=== PATIENT | female | born 1965 | race African-American/Black ===

== ENCOUNTER → 2018-04-24 | Outpatient (CLI) | payer MEDICARE, OTHER ==
--- NOTE | 2018-04-24 11:05 | MR ---
EXAMINATION TYPE: MR brain wo con DATE OF EXAM: 04/24/2018 10:24 AM COMPARISON: NONE HISTORY: Tremors FINDINGS: The ventricles, basal cisterns and sulci overlying the cerebral convexities are mildly enlarged. There is evidence of mild periventricular white matter ischemic demyelination. Multiple sub-4 mm foci of increased signal are noted on the inversion recovery data set totaling nancie roximately 15 within the right cerebral hemisphere and 6 within the left cerebral hemisphere. Finding s are nonspecific and may reflect chronic small vessel ischemic change, sequela of Lyme's disease, ch ronic migraine headaches, vasculitis as well as demyelinating disease. No acute edema is seen on diffusion weighted imaging. There is no evidence for midline shift or mass effect. Acute intracranial hemorrhage or extra-axial collection is not evident. The paranasal sinuses and mastoid air cells are well-aerated. IMPRESSION: Age-related atrophic and chronic small vessel ischemic change. Nonspecific white matter changes as n oted above. No acute intracranial process at this time.
--- NOTE | 2018-04-24 11:21 | US ---
EXAMINATION TYPE: US carotid duplex BILAT DATE OF EXAM: 04/24/2018 COMPARISON: NONE CLINICAL HISTORY: R47.89. tremors EXAM MEASUREMENTS: RIGHT: Peak Systolic Velocity (PSV) cm/sec ----- Right CCA: 80.3 ----- Right ICA: 107.0 ----- Right ECA: 85.4 ICA/CCA ratio: 1.3 RIGHT: End Diastole cm/sec ----- Right CCA: 28.5 ----- Right ICA: 50.0 ----- Right ECA: 22.2 LEFT: Peak Systolic Velocity (PSV) cm/sec ----- Left CCA: 69.0 ----- Left ICA: 83.3 ----- Left ECA: 85.4 ICA/CCA ratio: 1.2 LEFT: End Diastole cm/sec ----- Left CCA: 22.2 ----- Left ICA: 39.2 ----- Left ECA: 19.7 VERTEBRALS (direction of flow): Right Vertebral: Antegrade Left Vertebral: Antegrade Rhythm: Normal No elevated velocities IMPRESSION: 1. No significant flow-limiting stenosis bilateral carotid bifurcations. Criteria for Assigning % of Stenosis / Diameter reduction (Estimation based on the indirect measurements of the internal carotid artery velocities (ICA PSV). 1. Normal (no stenosis)=ICA PSV < 125 cm/s: ratio < 2.0: ICA EDV<40 cm/s. 2. Less than 50% stenosis=ICA PSV < 125 cm/s: ratio < 2.0: ICA EDV<40 cm/s. 3. 50 to 69% stenosis=ICA PSV of 125 to 230 cm/s: ration 2.0 ? 4.0: ICA EDV 40-100 cm/s. 4. Greater than 70% stenosis to near occlusion= ICA PSV > 230 cm/s: ratio > 4.0: ICA EDV > 100 cm/s. 5. Near occlusion= ICA PSV velocities may be low or undetectable: variable ratio and ICA EDV. 6. Total occlusion=unable to detect flow.
== END | disposition home or self-care (01) ==
LOC: RADUSWWP 09:28
PROVIDERS: ATTEND Psychiatry & Neurology Neurology
DX: I67.82 Cerebral ischemia (principal); G31.1 Senile degeneration of brain, not elsewhere classified; R90.82 White matter disease, unspecified
CPT/HCPCS: 70551; 93880

== ENCOUNTER 2018-06-21 08:00 | Emergency (ER) | payer MEDICARE, OTHER ==
[2018-06-21 08:05] VITALS: TEMP 98.3
[2018-06-21] MEDS: IBUPROFEN 600 MG TAB PO STA (08:15)
--- NOTE | 2018-06-21 08:18 | ED ---
Extremity Problem HPI - General Chief complaint: Extremity Problem,Nontraumatic Stated complaint: Elbow Pain Time Seen by Provider: 06/21/18 08:07 Source: patient, RN notes reviewed, old records reviewed Mode of arrival: ambulatory Limitations: no limitations - History of Present Illness Initial comments: Patient is a 52-year-old female who presents emergency department today with right elbow pain and swelling. Patient reports it started 5 days ago. She denies any fall or trauma. She reports she's had history of bursitis. She denies any abrasions over the skin. Patient states that she has had full sensation over her hand and wrist. She reports some pain with pronation and supination of the forearm. Patient denies any shoulder pain. She reports that she has had orthopedic procedures done by Dr. Agustín mendoza. - Related Data Home Medications Medication Instructions Recorded Confirmed Citalopram Hydrobromide [CeleXA] 40 mg PO DAILY 06/21/18 06/21/18 Lisinopril [Zestril] 10 mg PO DAILY 06/21/18 06/21/18 Montelukast [Singulair] 10 mg PO DAILY 06/21/18 06/21/18 Omeprazole 40 mg PO DAILY 06/21/18 06/21/18 amLODIPine [Norvasc] 10 mg PO DAILY 06/21/18 06/21/18 busPIRone HCl [Buspar] 20 mg PO BID 06/21/18 06/21/18 Previous Rx's Medication Instructions Recorded Ibuprofen 600 mg PO TID #20 tablet 06/21/18 traMADol HCL [Ultram] 50 mg PO Q6HR PRN 3 Days #12 tab 06/21/18 Allergies Allergy/AdvReac Type Severity Reaction Status Date / Time gabapentin [From Neurontin] AdvReac ANXIETY, Verified 06/21/18 09:29 JAW TREMORS Review of Systems ROS Statement: Those systems with pertinent positive or pertinent negative responses have been documented in the HPI. ROS Other: All systems not noted in ROS Statement are negative. Past Medical History Past Medical History: Asthma, Hypertension, Osteoarthritis (OA) Additional Past Medical History / Comment(s): HEART MURMUR History of Any Multi-Drug Resistant Organisms: None Reported Past Surgical History: Cholecystectomy, Joint Replacement Additional Past Surgical History / Comment(s): LEFT HIP REPLACED -LEFT KNEE Past Anesthesia/Blood Transfusion Reactions: No Reported Reaction Past Psychological History: Anxiety, Depression Smoking Status: Former smoker Past Alcohol Use History: None Reported Past Drug Use History: None Reported - Past Family History Sister(s) Family Medical History: Cancer General Exam - General Exam Comments Initial Comments: This is a 53-year-old female. Alert and oriented. Patient appears in moderate discomfort. Limitations: no limitations General appearance: alert, in no apparent distress Head exam: Present: atraumatic, normocephalic, normal inspection Eye exam: Present: normal appearance, PERRL, EOMI. Absent: scleral icterus, conjunctival injection, periorbital swelling ENT exam: Present: normal exam, mucous membranes moist Neck exam: Present: normal inspection. Absent: tenderness, meningismus, lymphadenopathy Respiratory exam: Present: normal lung sounds bilaterally. Absent: respiratory distress, wheezes, rales, rhonchi, stridor Cardiovascular Exam: Present: regular rate, normal rhythm, normal heart sounds. Absent: systolic murmur, diastolic murmur, rubs, gallop, clicks GI/Abdominal exam: Present: soft, normal bowel sounds. Absent: distended, tenderness, guarding, rebound, rigid Extremities exam: Present: normal inspection, full ROM, normal capillary refill. Absent: tenderness, pedal edema, joint swelling, calf tenderness Right Elbow exam: Present: tenderness, swelling, pain w/ pronation/supination, tenderness over radial head. Absent: normal inspection, laceration, ecchymosis, deformity (Over the olecranon process), crepitus, dislocation Forearm Wrist exam: Present: normal inspection, full ROM Hand Wrist exam: Present: normal inspection, full ROM Vascular: Present: normal capillary refill Neurological exam: Present: alert, oriented X3, CN II-XII intact Psychiatric exam: Present: normal affect, normal mood Skin exam: Present: warm, dry, intact, normal color. Absent: rash Course Vital Signs 06/21/18 08:01 Temperature 98.3 F Pulse Rate 89 Respiratory 18 Rate Blood Pressure 184/93 O2 Sat by Pulse 99 Oximetry Medical Decision Making - Medical Decision Making 53-year-old female presents emergency Department today with complaints of right elbow pain. She's had history of chronic right elbow pain worse with past 5 days. Patient reports that he feels that she is locked when she fully extends the arm. Patient x-ray was completed which is no acute fracture dislocation. There is extensive arthropathy and an old fracture deformity of the radial head. There is a joint effusion noted. The MRI could further assess synovitis. At this time Patient was informed of x-ray results. She denies any known trauma cause the previous elbow fracture. Patient was placed in an Jerod wrap at this time and placed in a shoulder sling. I discussed that Patient should follow-up with orthopedics and take anti-inflammatory medication pain medicine as prescribed for pain and discomfort. Patient understands treatment plan will comply. Return parameters were discussed. - Radiology Data Radiology results: report reviewed No acute fracture dislocation with the left elbow. Extensive arthropathy of the left elbow an old fracture deformity of the radial head. Posterior joint effusion is also seen. MRI could further assess for of the synovium first and a Vitas. Disposition Clinical Impression: Elbow arthritis, Tendinitis of right elbow Disposition: HOME SELF-CARE Condition: Good Instructions (If sedation given, give patient instructions): Tendinitis (ED), Elbow Bursitis (ED) Additional Instructions: Patient is to rest, ice, elevate the elbow. Wear the Jerod wrap and sling. Take the pain medicine and anti-inflammatory medicine as prescribed. Return to emergency department if any alarming signs or symptoms occur. Patient should follow-up with clinical product specialist. Prescriptions: Ibuprofen 600 mg PO TID #20 tablet traMADol HCL [Ultram] 50 mg PO Q6HR PRN 3 Days #12 tab PRN Reason: Pain Is patient prescribed a controlled substance at d/c from ED?: Yes If prescribed controlled substance>3 days was MAPS reviewed?: Prescribed <3 Days If opioid is for acute pain is fill amount 7 days or less?: Yes If Rx opioid, was Start Talking consent form obtained?: Yes Referrals: Lily Gomez MD [Primary Care Provider] - 1-2 days Martha Romo PAC [PHYSICIAN E MERCHANT] - 1-2 days Time of Disposition: 09:42
--- NOTE | 2018-06-21 09:25 | XR ---
EXAMINATION TYPE: XR elbow complete RT DATE OF EXAM: 06/21/2018 CLINICAL HISTORY: Known injury. Patient describes a locked feeling upper arm. TECHNIQUE: Frontal, lateral and oblique images of the left elbow are obtained. COMPARISON: None FINDINGS: There are protuberant osteophytes from the radial head and a healed fracture deformity. Num erous osteophytes are also seen of the elbow joint from the olecranon. Posterior small joint effusion is seen. No acute fracture is identified. IMPRESSION: There is no acute fracture or dislocation in the left elbow. Extensive arthropathy of th e left elbow and old fracture deformity of the radial head. Posterior joint effusion is also seen. MR I could further assess the synovium for synovitis.
[2018-06-21 10:02] VITALS: BP 184/114; PULSE 73; RESP 19
== END 2018-06-21 10:03 | disposition home or self-care (01) ==
LOC: EC 08:00
DX: M77.9 Enthesopathy, unspecified (principal); M19.021 Primary osteoarthritis, right elbow; J45.909 Unspecified asthma, uncomplicated; I10 Essential (primary) hypertension; F32.9 Major depressive disorder, single episode, unspecified; F41.9 Anxiety disorder, unspecified; Z87.891 Personal history of nicotine dependence; Z79.899 Other long term (current) drug therapy; Z88.8 Allergy status to other drugs, medicaments and biological substances; Z96.642 Presence of left artificial hip joint; Z96.652 Presence of left artificial knee joint
CPT/HCPCS: 99284

== ENCOUNTER 2023-11-17 11:30 | Emergency (ER) | payer MEDICARE ==
--- NOTE | 2023-12-07 09:41 | US ---
Site ID [facility] Patient Fabby Lopez ID [id number] EXAMINATION TYPE: US venous doppler duplex LE LT DATE OF EXAM: 11/17/2023 1:30 PM COMPARISON: THIS EXAM WAS READ DURING PACS DOWNTIME, NO PRIORS AVAILABLE. CLINICAL INDICATION: DVT, Lt ankle pain, redness/swelling. SIDE PERFORMED: Left TECHNIQUE: The lower extremity deep venous system is examined utilizing real time linear array sonog narda with graded compression, doppler sonography and color-flow sonography. VESSELS IMAGED: Common Femoral Vein Deep Femoral Vein Greater Saphenous Vein * Femoral Vein Popliteal Vein Small Saphenous Vein * Proximal Calf Veins (* superficial vessels) Left Leg: Negative for DVT, Grayscale, color doppler, spectral doppler imaging performed of the deep veins of the lower extremities. There is normal flow, compressibility, vascular waveforms. Streaky subcutaneous edema within the left lower extremity. IMPRESSION: No evidence for deep vein thrombosis of the left lower extremity.
== END 2023-11-17 13:10 | disposition left against medical advice (07) ==
LOC: EC 11:30
DX: M79.89 Other specified soft tissue disorders (principal); Z53.29 Procedure and treatment not carried out because of patient's decision for other reasons
CPT/HCPCS: 99283

== ENCOUNTER → 2023-12-20 | Outpatient (CLI) | payer MEDICARE, OTHER ==
--- NOTE | 2023-12-20 13:56 | US ---
EXAMINATION TYPE: US arterial LE single level DATE OF EXAM: 12/20/2023 1:40 PM CLINICAL INDICATION: Female, 58 years old with history of Edema; Left leg pain History of: Smoker: Previous Hypertension: Yes Diabetic: No Hyperlipidemia: No TIA/CVA: No Previous Vascular Surgery: No WV: No Vascular Ulcers: No Claudication: No Gangrene: No Doppler Waveforms: Right: Multiphasic Left: Multiphasic Right Brachial Pressure: 108 Left Brachial Pressure: 115 Ankle-Brachial Indices: Right: 1.21 Left: 1.21 (Vessel hardening > 1.4; Normal 0.9 - 1.4, Moderate 0.7 - 0.9, Severe 0.5-0.7) IMPRESSION: Normal bilateral TYLOR.
--- NOTE | 2023-12-21 08:44 | MM ---
Reason for Exam: Screening (asymptomatic). Last mammogram was performed 9 year(s) and 2 month(s) ago. Patient History: Menarche at age 11. First Full-Term at age 20. Postmenopausal. Hormonal Contraceptives for 3 years from age 17 until age 20. 04/08/2009, Benign Core Biopsy on the left side. Risk Values: Gillian 5 year model risk: 1.4%. NCI Lifetime model risk: 7.1%. Prior Study Comparison: 03/23/2009 Bilateral Diagnostic Mammogram, [facility]. 08/08/2012 Bilateral Diagnostic Mammogram, [facility]. 10/21/2014 Bilateral Screening Mammogram, [facility]. Tissue Density: There are scattered areas of fibroglandular density. Findings: Analyzed By CAD. There is no suspicious group of microcalcifications or new suspicious mass in either breast. Overall Assessment: Negative, BI-RAD 1 Management: Screening Mammogram of both breasts in 1 year. . Patient should continue monthly self-breast exams. A clinical breast exam by your physician is recommended on an annual basis. This exam should not preclude additional follow-up of suspicious palpable abnormalities. Note on Gillian scores and lifetime risk: 1. A Gillian score greater than 3% is considered moderate risk. If this is the case, consider specialist referral to assess eligibility for a risk reducing agent. 2. If overall lifetime risk for the development of breast cancer is 20% or higher, the patient may qualify for future screening with alternating mammogram and breast MRI. Electronically signed and approved by: Quique Trotter M.D. Radiologis
== END | disposition home or self-care (01) ==
LOC: RADUSWWP 12:49
PROVIDERS: ATTEND Family Medicine
DX: Z12.31 Encounter for screening mammogram for malignant neoplasm of breast
CPT/HCPCS: 77067; 93922

== ENCOUNTER → 2024-02-06 | Outpatient (CLI) | payer MEDICARE, OTHER | END | disposition home or self-care (01) | LOC: LABPAT 08:40 | PROVIDERS: ATTEND Orthopaedic Surgery | DX: Z01.812 Encounter for preprocedural laboratory examination (principal) | CPT/HCPCS: 36415; 86850; 86900; 86901; 87070 ==

== ENCOUNTER 2024-02-12 07:35 | Observation (INO) | payer MEDICARE, OTHER ==
[2024-02-08 10:28] VITALS: BMI 32.8
--- NOTE | 2024-02-11 09:09 | P.HPOR ---
History of Present Illness H&P Date: 02/11/24 Chief Complaint: Right hip pain Patient is a 58-year-old female who presents with progressive right hip pain for the past 1-2 years that's progressively worsened. She is having groin and thigh pain with any weightbearing activities. She's been limping. She tried medications without much relief. She notes daily pain that limits her. Review of Systems Per HPI Past Medical History Past Medical History: Asthma, GERD/Reflux, Hypertension, Osteoarthritis (OA) Additional Past Medical History / Comment(s): HEART MURMUR History of Any Multi-Drug Resistant Organisms: None Reported Past Surgical History: Cholecystectomy, Joint Replacement Additional Past Surgical History / Comment(s): LT EASTON, LT TKA Past Anesthesia/Blood Transfusion Reactions: No Reported Reaction Smoking Status: Former smoker - Past Family History Sister(s) Family Medical History: Cancer Medications and Allergies Home Medications Medication Instructions Recorded Confirmed Type Montelukast [Singulair] 10 mg PO HS 06/21/18 02/08/24 History amLODIPine [Norvasc] 10 mg PO DAILY 06/21/18 02/08/24 History Acetaminophen-Codeine 300-30mg 1 tab PO DAILY PRN 02/08/24 02/08/24 History [Tylenol w/codeine #3] Chlorthalidone 25 mg PO DAILY 02/08/24 02/08/24 History Meloxicam [Mobic] 15 mg PO DAILY 02/08/24 02/08/24 History Omeprazole 20 mg PO DAILY 02/08/24 02/08/24 History QUEtiapine [SEROquel] 25 mg PO HS 02/08/24 02/08/24 History buPROPion SR [Wellbutrin SR] 150 mg PO DAILY 02/08/24 02/08/24 History cloNIDine HCL [Catapres] 0.2 mg PO BID 02/08/24 02/08/24 History clonazePAM 2 mg PO BID 02/08/24 02/08/24 History lisinopriL [Zestril] 20 mg PO DAILY 02/08/24 02/08/24 History tiZANidine [Zanaflex] 2 mg PO BID 02/08/24 02/08/24 History Allergies Allergy/AdvReac Type Severity Reaction Status Date / Time gabapentin [From Neurontin] AdvReac ANXIETY, Verified 02/08/24 10:02 JAW TREMORS Physical Examination - Hip right Gait: antalgic Tenderness with palpation: anterior Pain with motion: internal rotation and hip flexion ROM: flexion: 80 degrees ROM: internal rotation: 0 degrees (With pain) ROM: external rotation: 50 degrees Strength: flexion: 5/5 Strength: abduction: 5/5 Tests: impingement tests: positive Results The patient is a well-developed well-nourished female approximately 5 foot 7, 214 pounds of endomorphic habitus. HEENT exam is nonfocal, neck is supple. She has painful passive motion of the right hip. Straight leg raise is negative. Clinically she has shortening the right lower extremity compared to the left. Her distal neurovascular exam appears intact in the right lower extremity. Assessment and Plan Assessment: Right hip severe osteoarthrosis Plan: I talked to the patient at length regarding her condition along with treatment options. This which is quite symptomatic having pain related to the right hip osteoporosis despite previous conservative measures. After a thorough discussion she opts to proceed with surgery. We will plan procedure right total hip arthroplasty utilizing an anterior approach. Risks and benefits were discussed at length in layman's terms. We will institute DVT prophylaxis postoperatively..
[~2024-02-12 07:35] MED LIST: ACETAMINOPHEN TAB 500 MG TAB PO PRN; LIDOCAINE 1% (10MG/ML) FOR IV START INTRADERMA PRN; METOCLOPRAMIDE 5 MG/ML 2 ML VIAL IVP PRN; MIDAZOLAM 2 MG/2 ML VIAL IV PRN; TRANEXAMIC 1,000 MG/100ML-NACL 1,000 MG in SALINE 1 100ML.BAG IVPB PRN; fentaNYL (PF) 50 MCG/ML 2 ML AMP IV PRN; fentaNYL (PF) 50 MCG/ML 2 ML AMP IVP PRN
[2024-02-12] MEDS: DEXAMETHASONE SOD PHOSPHATE 4 MG/ML 1 ML VIAL IV ONE (08:43)
[2024-02-12] MEDS: ONDANSETRON 4 MG/2 ML VIAL IVP ONE (08:43)
[2024-02-12] MEDS: MELOXICAM 7.5 MG TAB PO PRN (08:43)
[2024-02-12] MEDS: LACTATED RINGERS 1,000 ML IV SCH (08:44)
[2024-02-12] MEDS: IV FLUID CONTINUATION 1,000 ML IV ONE (08:53)
[2024-02-12] MEDS: MIDAZOLAM 2 MG/2 ML VIAL IVP ONE (09:05)
--- NOTE | 2024-02-12 09:16 | P.ANPRN ---
Procedure Note - Anesthesia - Nerve Block Performed Right Uvaldo Single Time Out Performed: Yes ([id number]) Date of Procedure: 02/12/24 Procedure Start Time: : Procedure Stop Time: :13 Location of Patient: PreOp Indication: Acute Post-Operative Pain, Requested by Surgeon Sedation Type: Sedate with meaningful contact maintained Preparation: Sterile Prep, Sterile Dressing Position: Supine Catheter: None Needle Types: Pajunk Needle Gauge: 21 Ultrasound used to visualize needle placement: Yes Ultrasound used to observe medication spread: Yes Injectate: 0.5% Ropivacaine (see comment for volume) (21 mL of block solution containing 4 mg of dexamethasone mixed with 20 mL of 0.5% ropivacaine) Blood Aspirated: No Pain Paresthesia on Injection Noted: No Resistance on Injection: Normal Image Stored and Saved: Yes Events: Uneventful and Well Tolerated
[2024-02-12] MEDS ORDERED: GLYCOPYRROLATE 0.2 MG/ML 2 ML VIAL ONE (09:49)
[2024-02-12] MEDS ORDERED: PROPOFOL 10 MG/ML 20 ML VIAL IV ONE (09:49)
[2024-02-12] MEDS ORDERED: DEXAMETHASONE SOD PHOSPHATE 4 MG/ML 1 ML VIAL ONE (09:49)
[2024-02-12] MEDS ORDERED: MIDAZOLAM 2 MG/2 ML VIAL ONE (09:49)
[2024-02-12] MEDS ORDERED: fentaNYL (PF) 50 MCG/ML 2 ML AMP ONE (09:49)
[2024-02-12] MEDS ORDERED: ePHEDrine 50 MG/ML 1 ML VIAL ONE (09:49)
[2024-02-12] MEDS ORDERED: ROPIVACAINE 5 MG/ML 30 ML VIAL ONE (09:49)
[2024-02-12] MEDS ORDERED: TRANEXAMIC 1,000 MG/100ML-NACL PREMIX BAG ONE (09:49)
[2024-02-12] MEDS: ceFAZolin 1,000 MG in SODIUM CHLORIDE 0.9% 1,000 ML IRRIGATION ONE (10:23)
[2024-02-12] MEDS ORDERED: NALOXONE 0.4 MG/ML 1 ML VIAL IV PRN (11:52)
[2024-02-12] MEDS ORDERED: MAGNESIUM HYDROXIDE 2,400 MG/30 ML CUP PO PRN (11:52)
[2024-02-12] MEDS ORDERED: ONDANSETRON 4 MG/2 ML VIAL IVP PRN (11:52)
[2024-02-12] MEDS ORDERED: HYDROcodone/APAP 5-325MG 1 EACH TAB PO PRN (11:52)
[2024-02-12] MEDS ORDERED: hydrOXYzine pamoate 25 MG CAP PO PRN (11:52)
[2024-02-12] MEDS ORDERED: HYDROmorphone 0.5 MG/0.5 ML SYRINGE IVP PRN (11:52)
--- NOTE | 2024-02-12 12:08 | XR ---
EXAMINATION TYPE: XR Hip Limited RT DATE OF EXAM: 02/12/2024 COMPARISON: NONE CLINICAL INDICATION: Female, 58 years old with history of RT HIP OA; TECHNIQUE: 6 view submitted. FINDINGS: There is postsurgical change compatible hip replacement surgery. IMPRESSION: 1. Postoperative change. [facility], , 02/12/2024 12:06 PM
--- NOTE | 2024-02-12 12:08 | FL ---
EXAMINATION TYPE: FL guidance operating room DATE OF EXAM: 02/12/2024 HISTORY: Fluoroscopy time Total dose area product (DAP) in uGy*m?, mGy*cm? (or similar): 1.8448 IMPRESSION: 1. Fluoroscopy time. [facility], , 02/12/2024 12:06 PM
--- NOTE | 2024-02-12 12:09 | P.OP ---
Date of Procedure: 02/12/24 Preoperative Diagnosis: Right hip osteoarthrosissevere Postoperative Diagnosis: Same Procedure(s) Performed: Right total hip arthroplastypress-fitanterior approach Implants: DePuy Corail size 11 standard collared press-fit femoral stem, 36+1.5 cobalt chrome femoral head, 56 mm [place] acetabular shell with neutral polyethylene liner. I utilized a 6.5 x 30 mm and 6.5 x 20 mm cancellous screw for additional fixation. Anesthesia: spinal Surgeon: Aung Romo Sausage Linker #1: [address] Estimated Blood Loss (ml): 600 Pathology: none sent Condition: stable Disposition: PACU Indications for Procedure: The patient is a 58-year-old female who presents with progressive right hip pain secondary to osteoarthrosis despite conservative measures. A discussion of the risks and benefits of operative intervention versus continued conservative measures was made with the patient. She opted proceed with surgery. Operative risks include infection, neurovascular injury, development of blood clots, fracture, leg length discrepancy, possible component loosening/failure and possible need for subsequent procedures was discussed. Informed consent was obtained. Operative Findings: As below Description of Procedure: The patient was brought to the operating room, and after induction of spinal anesthesia was placed supine on the Vianey table. Positioning was checked with fluoroscopy. The right hip was then prepped and draped in a normal fashion. A 12 cm incision was then made starting 2 fingerbreadths distal and 3 finger breaths posterior to the ASIS in line with the proximal femur. The skin was incised sharply. Subcutaneous tissues were divided sharply. Electrocautery was used for hemostasis. The fascia was split in line with skin incision. The interval between the sartorius and tensor fascia consuelo was then bluntly developed. The posterior fascia was opened with electrocautery. The lateral circumflex vessels were identified and cauterized prior to sectioning. A retractor was placed along the superior femoral neck as well as the anterior acetabular rim. A wide capsulotomy was performed. The neck cut was then made at a 45 angle to the shaft approximately 1 1/2 cm above the level of the lesser trochanter. The head was extracted. Attention was then paid towards preparing the acetabular. Anterior and posterior retractors were placed. The remaining capsular labral tissue sharply debrided clearly defining the acetabular margins. I began reaming with a 49 mm reamer taking care to initially medialize then reaming at 45 of abduction and 20 of anteversion. Sequential reaming is performed up to 55 mm. A trial 56 mm acetabular shell was inserted in the same orientation and was fully seated. Positioning was checked with fluoroscopy. The final 56 mm acetabular shell was inserted again at 45 of abduction and 20 of anteversion. This was fully seated. There was good rim fit and stability. I did place a posterior superior and superior cancellous screw for additional fixation with the aid of fluoroscopy. Good purchase was obtained. Again fluoroscopy was used to check the adequacy of placement. A neutral polyethylene liner was gently impacted. Care was taken to avoid any soft tissue interposition. Pulsatile lavage was utilized. Attention was then paid towards preparing the proximal femur. The central region was cleared of soft tissue. A canal finder was used to find the femoral canal. Sequential broaching was performed up to size 11 taking care to lateralize proximally. A calcar mill was used to fashion the medial calcar. There was good rotational stability. A standard neck along with a 36 mm +1.5 head was placed. The hip was gently reduced. Fluoroscopy was used to check the adequacy of positioning along with leg lengths. I felt both were good. The hip was gently dislocated. The trial components were removed. The final size 11 collared standard press- fit femoral stem was inserted parallel to the posterior cortex. This was fully seated and there was good rotational stability. A 36 mm +1.5 head was placed. This was gently impacted. The hip was then gently reduced. Final fluoroscopic view showed adequate placement implant along with lutheran of leg length. Stability was checked with 80 of external rotation and 60 of extension of the right hip. The wound was irrigated with sterile lavage. The fascia was closed with running 0 Vicryl suture. There was minimal drainage therefore a deep drain was not placed. The second dose of IV TXA was given. The subcutaneous tissues were reapproximated interrupted 2-0 Vicryl sutures. The skin was reapproximated with 3-0 subcuticular strata fix suture. Skin tape and adhesive was applied. A sterile dressing was applied. The patient was then awoken from sedation and transferred to recovery room in good condition. Blood loss was estimated at 600 mL. No complications were incurred. Sponge and needle counts were correct at the end of the case. Warren OCAMPO assisted during the major components is case to include exposure, bone resection, implantation, and closure.
[2024-02-12] MEDS: HYDROmorphone 0.5 MG/0.5 ML SYRINGE IVP PRN (12:25)
--- NOTE | 2024-02-12 12:46 | XR ---
EXAMINATION TYPE: XR Hip Limited RT DATE OF EXAM: 02/12/2024 COMPARISON: NONE CLINICAL INDICATION: Female, 58 years old with history of Status post hip surgery, assess surgical al ignment; TECHNIQUE: One view submitted. FINDINGS: There is postsurgical change compatible hip replacement surgery. Soft tissue edema and emphysema\air consistent with recent surgery. IMPRESSION: 1. Postoperative change. [facility], , 02/12/2024 12:44 PM
[2024-02-12] MEDS: HYDROmorphone 2 MG/ML 1 ML SYRINGE IVP PRN (15:58)
[2024-02-12] MEDS: cloNIDine HCL 0.2 MG TAB PO SCH (22:05)
[2024-02-12] MEDS: MONTELUKAST 10 MG TAB PO SCH (22:05)
[2024-02-12] MEDS: HYDROcodone/APAP 7.5-325MG 1 EACH TAB PO PRN (22:05)
[2024-02-12] MEDS: clonazePAM 1 MG TAB PO SCH (22:05)
[2024-02-12] MEDS: QUEtiapine 25 MG TAB PO SCH (22:06)
[2024-02-12] MEDS: SENNOSIDES-DOCUSATE SODIUM 1 EACH TAB PO SCH (22:06)
[2024-02-13] MEDS: tiZANidine 4 MG TAB PO SCH (00:18)
[2024-02-13 07:30] VITALS: RESP 17
[2024-02-13 08:31] LABS: Basophils # (A) 0.01 X 10*3/uL (0.00-0.10); Basophils % (A) 0.1 %; Eosinophils # (A) 0.01 X 10*3/uL (0.04-0.35); Eosinophils % (A) 0.1 %; HCT 30.4 % (37.2-46.3); HGB 9.9 g/dL (12.0-15.0); Lymphocytes # (A) 2.78 X 10*3/uL (0.90-5.00); Lymphocytes % (A) 27.3 %; MCHC 32.6 g/dL (32.0-37.0); MCV 89.1 FL (80.0-97.0); Mean Platelet Volume 10.1 FL (9.5-12.2); Monocytes % (A) 11.8 %; NRBC Per 100 WBC 0 X 10*3/uL (0.00-0.01); Neutrophils # (A) 6.15 X 10*3/uL (1.80-7.70); Neutrophils % (A) 60.4 %; Platelet Count 282 X 10*3/uL (140-440); RBC 3.41 X 10*6/uL (4.10-5.20); RDW 14.8 % (11.5-14.5); WBC 10.18 X 10*3/uL (4.50-10.00)
[2024-02-13] MEDS: RIVAROXABAN 10 MG TAB PO SCH (10:56)
[2024-02-13] MEDS: lisinopriL 20 MG TAB PO SCH (10:56)
[2024-02-13] MEDS: CHLORTHALIDONE 25 MG TAB PO SCH (10:58)
[2024-02-13] MEDS: amLODIPine 10 MG TAB PO SCH (11:01)
[2024-02-13] MEDS: buPROPion SR 150 MG TABLET.ER PO SCH (11:01)
[2024-02-13] MEDS: ASPIRIN 81 MG PO SCH (11:03)
[2024-02-13] MEDS: PANTOPRAZOLE 40 MG TABLET PO SCH (11:05)
[2024-02-13] MEDS: MELOXICAM 7.5 MG TAB PO SCH (11:14)
--- NOTE | 2024-02-13 12:29 | P.DS ---
Providers Date of admission: 02/12/24 07:36 Expected date of discharge: 02/13/24 Attending physician: Aung Romo Consults: 02/12/24 11:52 Consult Physician Routine Consulting Provider: Isma Cardona Consult Reason/Comments: medical management s/p direct anterior right total hip arthroplasty Do you want consulting provider notified?: Yes Primary care physician: Isma Cardona Hospital Course: Date of admission: 02/12/2024 Date of discharge: 02/13/2024 Admission diagnosis: Right hip osteoarthritis Discharge diagnosis: Same Attending physician: Dr. Romo Surgical procedures: In direct anterior right total hip arthroplasty Brief history: Patient is a 58-year-old female with a history of progressive primary right hip osteoarthritis. At this point patient has failed conservative treatment measures and has opted to proceed with a elective right total hip arthroplasty. Hospital course: Details of patient's surgery can be found in operative report. Patient tolerated the procedure well and was subsequently transported to orthopedic floor. Patient's orthopeidc and medical care was provided daily. Patient had daily laboratory tests performed for evaluation of overall blood counts. Patient had daily physical therapy to include strengthening range of motion as well as education with walker ambulation. Patient was treated with Xarelto for their postoperative DVT prophylaxis during their inpatient stay. Patient was noted to have a relatively uneventful postoperative course. Patient reported satisfactory pain control with oral pain medications by postoperative day 1. Patient showed satisfactory progress with physical therapy. Patient moved steadily through the program and had no difficulty meeting the goals by postoperative day 1. Given patient's otherwise satisfactory course and having met physical therapy goals, plan is to discharge patient home with health services on postoperative day 1. Discharge condition/disposition: Patient will be discharged home with health services in stable condition. Discharge medications: Instructions are given on resumption of patient's normal daily medications per primary care recommendation, in addition patient will be prescribed Fisher; senna; Eliquis 2.5 mg twice a day 2 weeks. Discharge instructions: 1. Wound care and infection precautions, keep incision dry and covered while s howering, no lotions, creams, moisturizers. No soaking, tubs, pools, hottubs. Do not scrub over the incision. 2. Weight-bear as tolerated with walker / cane until follow-up. 3. Ice and elevate when necessary. Do not exceed 20 minutes per hour with ice pack. 4. Utilize compression sleeve until seen at first follow up appointment. 5. Visiting nursing care. 6. Home physical therapy. 7. Pain meds and anticoagulants per prescription. 8. Pain medication has potential to cause constipation. Increase oral fluid and fiber intake. Contact primary care provider if you have not had a bowel movement within 48 hours after discharge 9. No anti-inflammatory medication until discussed at first post operative visit, this including Motrin, Aleve, Mobic, Diclofenac, aspirin. 10. Follow up in office at 2 weeks postop with Qasim Cruz PA-C / [address] PA-C 11. Follow up with your primary care doctor 7-10 days after discharge. 12. Contact [facility] with any questions, . Assessment: Right hip osteoarthritis Procedures: Direct anterior right total hip arthroplasty Patient Condition at Discharge: Good Plan - Discharge Summary Discharge Rx Participant: Yes New Discharge Prescriptions: New HYDROcodone/APAP 7.5-325MG [Fisher 7.5-325] 1 tab PO Q6HR PRN #28 tab PRN Reason: Pain Apixaban [Eliquis] 2.5 mg PO BID #60 tab Sennosides/Docusate Sodium [Senna Plus 8.6-50 mg Softgel] 1 each PO DAILY #20 capsule No Action amLODIPine [Norvasc] 10 mg PO DAILY Montelukast [Singulair] 10 mg PO HS cloNIDine HCL [Catapres] 0.2 mg PO BID tiZANidine [Zanaflex] 2 mg PO BID lisinopriL [Zestril] 20 mg PO DAILY Meloxicam [Mobic] 15 mg PO DAILY clonazePAM 2 mg PO BID QUEtiapine [SEROquel] 25 mg PO HS buPROPion SR [Wellbutrin SR] 150 mg PO DAILY Omeprazole 20 mg PO DAILY Chlorthalidone 25 mg PO DAILY Aspirin 81 mg PO DAILY HYDROcodone/APAP 5-325MG [Fisher 5-325] 1 tab PO Q6HR PRN PRN Reason: Pain Discharge Medication List Montelukast [Singulair] 10 mg PO HS 06/21/18 [History] amLODIPine [Norvasc] 10 mg PO DAILY 06/21/18 [History] Chlorthalidone 25 mg PO DAILY 02/08/24 [History] Meloxicam [Mobic] 15 mg PO DAILY 02/08/24 [History] Omeprazole 20 mg PO DAILY 02/08/24 [History] QUEtiapine [SEROquel] 25 mg PO HS 02/08/24 [History] buPROPion SR [Wellbutrin SR] 150 mg PO DAILY 02/08/24 [History] cloNIDine HCL [Catapres] 0.2 mg PO BID 02/08/24 [History] clonazePAM 2 mg PO BID 02/08/24 [History] lisinopriL [Zestril] 20 mg PO DAILY 02/08/24 [History] tiZANidine [Zanaflex] 2 mg PO BID 02/08/24 [History] Aspirin 81 mg PO DAILY 02/12/24 [History] HYDROcodone/APAP 5-325MG [Fisher 5-325] 1 tab PO Q6HR PRN 02/12/24 [History] Apixaban [Eliquis] 2.5 mg PO BID #60 tab 02/13/24 [Rx] HYDROcodone/APAP 7.5-325MG [Fisher 7.5-325] 1 tab PO Q6HR PRN #28 tab 02/13/24 [Rx] Sennosides/Docusate Sodium [Senna Plus 8.6-50 mg Softgel] 1 each PO DAILY #20 capsule 02/13/24 [Rx] Follow up Appointment(s)/Referral(s): [facility] [address] PAC [PHYSICIAN [employer]] - 02/27/24 9:10 am [facility], [NON-STAFF] - As Needed (*[facility] services will call you after discharge to schedule your in home care) Patient Instructions/Handouts: Anterior Hip Replacement (GEN) Activity/Diet/Wound Care/Special Instructions: Orthopedic Discharge Instructions: 1. Wound care and infection precautions, keep incision dry and covered while showering, no lotions, creams, moisturizers. No soaking, pools, hot tubs. Do not scrub over incision. 2. Weight-bear as tolerated with walker / cane until follow-up. 3. Ice and elevate when necessary. Do not exceed 20 minutes per hour with ice pack. 4. Utilize compression sleeve until seen at first follow up appointment. 5. Pain meds and anticoagulants per prescription. 6. Pain medication has potential to cause constipation. Increase oral fluid and fiber intake. Contact primary care provider if you have not had a bowel movement within 48 hours after discharge. 7. No anti-inflammatory medication until discussed at first post operative visit, this including Motrin, Aleve, Mobic, Diclofenac. 8. Follow up in office at 2 weeks postop with Qasim Cruz PA-C / [address] PA-C 9. Follow up with your primary care doctor 7-10 days after discharge. 10. Contact [facility] with any questions, . Keep incision clean, dry, intact. While showering, cover fusion tape with Saran wrap. Keep fusion tape on until follow-up appointment in office in 2 weeks. Discharge Disposition: HOME WITH HOME HEALTH SERVICES
--- NOTE | 2024-02-13 12:36 | P.PN ---
Subjective Progress Note Date: 02/13/24 Principal diagnosis: Right hip osteoarthritis Patient was seen at bedside this morning sitting up in chair with legs elevated. Patient says she did work with therapy and did well this morning. She says she does need a walker for home. Patient says the pain is well-controlled with oral medication. Patient says she has urinated since surgery yesterday without issue. Patient denies any other issues at this time. Objective - Vital Signs Vital signs: Vital Signs Temp 98.4 F 02/13/24 07:29 Pulse 70 02/13/24 07:29 Resp 17 02/13/24 07:29 BP 111/75 02/13/24 07:29 Pulse Ox 99 02/13/24 07:29 FiO2 Intake & Output 02/12/24 02/13/24 02/13/24 18:59 06:59 18:59 Intake Total 601 50 Balance 601 50 Weight 97.7 kg Intake: IV 601 Intake, IV Titration 50 Amount ceFAZolin 2 gm In Sodium 50 Chloride 0.9% 50 ml @ 100 mls/hr IVPB Q8HR [facility] Rx# :[id number] Other: Voiding Method Toilet # Voids 2 - Exam Right hip: Incision is clean, dry, and intact. The exofin fusion tape is in good condition. There is minimal soft tissue swelling and ecchymosis surrounding the medial and lateral aspects of the incision. Calf is soft, no tenderness with palpation. Plantar flexion, dorsiflexion, EHL, FHL are intact. Sensory exam to light touch throughout the extremity is intact, dorsal pedis pulses 2+. - Labs CBC & Chem 7: 02/13/24 03:51 Labs: Abnormal Lab Results - Last 24 Hours (Table) 02/13/24 Range/Units 03:51 WBC 10.18 H (4.50-10.00) X 10*3/uL RBC 3.41 L (4.10-5.20) X 10*6/uL Hgb 9.9 L (12.0-15.0) g/dL Hct 30.4 L (37.2-46.3) % RDW 14.8 H (11.5-14.5) % Monocytes # 1.20 H (0.20-1.00) X 10*3/uL Eosinophils # 0.01 L (0.04-0.35) X 10*3/uL Assessment and Plan Assessment: 1. Right hip osteoarthritis - Postoperative day 1 status post right total hip arthroplasty Plan: 1. Right hip osteoarthritis - direct anterior right total hip arthroplasty performed yesterday, 02/12/2024. Patient stable at bedside this morning. Patient to do well with PT. Prescription for walker signed. Discharge home today with health services. 2. Appreciate medical management 3. Pain management - [facility] 4. DVT prophylaxis - [facility]. Going home with Eliquis 2.5 mg twice a day 2 weeks 5. GI prophylaxis - senna 6. PT/OT - weightbearing as tolerated with walker 7. Encourage incentive spirometer use 8. Discharge planning - home today with health services. Time with Patient: Less than 30
[2024-02-13 14:14] VITALS: BP 106/69; PULSE 61; TEMP 98.5
--- NOTE | 2024-02-17 04:33 | HP ---
HISTORY AND PHYSICAL CHIEF COMPLAINT: Arthritis of the right hip. HISTORY OF PRESENT ILLNESS: This is a 58-year-old female, who is in for an elective right hip replacement. She is doing well. REVIEW OF SYSTEMS: She denies any headaches, shortness of breath, chest pain, abdominal pain, nausea, vomiting, urinary complaints, etc. Past medical history, family history and personal and social histories are all otherwise unremarkable or noncontributory and can be found in her admitting summary. PHYSICAL EXAMINATION: VITAL SIGNS: Normal. HEAD, EARS, EYES, NOSE, MOUTH, AND THROAT: Normal. CHEST: Clear. CARDIAC: Normal. ABDOMEN: Soft, nontender. EXTREMITIES: Normal. NEUROLOGIC: She is intact. IMPRESSION: Osteoarthritis of the right hip. RECOMMENDATIONS: None. MMODL / IJN: [id number] /
== END 2024-02-13 14:50 | disposition home health service (06) ==
LOC: OR 07:35 → 4SSUR 07:36
PROVIDERS: ADMIT Orthopaedic Surgery; ATTEND Orthopaedic Surgery
DX: M16.11 Unilateral primary osteoarthritis, right hip (principal); G89.18 Other acute postprocedural pain; I10 Essential (primary) hypertension; J45.909 Unspecified asthma, uncomplicated; K21.9 Gastro-esophageal reflux disease without esophagitis; Z79.1 Long term (current) use of non-steroidal anti-inflammatories (NSAID); Z79.899 Other long term (current) drug therapy; Z87.891 Personal history of nicotine dependence
CPT/HCPCS: 27130; 97161; 97166; 64999; 85025; 73501; G0378; C1776; J2250; J1171 ×3; J1100; S0106; J0690 ×3; J2405; J3010; J2795; J2704; J1596